=== PATIENT | female | born 1965 | race Caucasian/White ===

== ENCOUNTER 2020-05-07 07:55 | Outpatient (CLI) | payer OTHER ==
[2020-05-07 15:11] LABS: BASOPHILS % (AUTO) 0.6 %; EOSINOPHILS # (AUTO) 0.2 10^3/uL (0.0-0.7); EOSINOPHILS % (AUTO) 3.7 %; LYMPHOCYTES # (AUTO) 2.2 10^3/uL (1.5-3.5); LYMPHOCYTES % (AUTO) 45.2 %; MEAN CORPUSCULAR HEMOGLOBIN 32.8 pg (27.0-31.0); MEAN CORPUSCULAR HGB CONC 33.3 g/dL (32.0-36.0); MEAN CORPUSCULAR VOLUME 98.4 fL (81.0-99.0); MEAN PLATELET VOLUME 12.5 fL (7.9-10.8); MONOCYTES # (AUTO) 0.4 10^3/uL (0.0-1.0); MONOCYTES % (AUTO) 7.9 %; NEUTROPHILS # (AUTO) 2.1 10^3/uL (1.5-6.6); NEUTROPHILS % (AUTO) 42.4 %; PLT - PLATELET COUNT 167 10^3/uL (130-450); RED BLOOD COUNT 4.27 10^6/uL (4.20-5.40); RED CELL DISTRIBUTION WIDTH 12.3 % (12.0-15.0); WHITE BLOOD COUNT 4.9 x10^3/uL (4.8-10.8)
[2020-05-07 15:52] LABS: THYROID STIMULATING HORMONE 1.1 uIU/mL (0.34-5.60)
[2020-05-07 15:54] LABS: FREE T4 (FREE THYROXINE) 1.01 ng/dL (0.58-1.64)
[2020-05-07 15:55] LABS: ALBUMIN 3.9 g/dL (3.2-5.5); ALBUMIN/GLOBULIN RATIO 1.4 (1.0-2.2); ALKALINE PHOSPHATASE 58 IU/L (42-121); ALT ALANINE AMINOTRANSFERASE 37 IU/L (10-60); AST ASPARTATE AMINOTRANSFERASE 62 IU/L (10-42); BILIRUBIN,TOTAL 0.9 mg/dL (0.2-1.0); BUN - BLOOD UREA NITROGEN 16 mg/dL (6-20); CALCIUM 9.2 mg/dL (8.5-10.3); CARBON DIOXIDE - CO2 29 mmol/L (21-32); CHLORIDE 105 mmol/L (101-111); CHOL/HDL RATIO 2.3 (<4.4); CHOLESTEROL 202 mg/dL; CREATININE 0.7 mg/dL (0.4-1.0); FREE T3 3.03 pg/mL (2.5-3.9); GLUCOSE 98 mg/dL (70-100); HDL CHOLESTEROL 88 mg/dL; LDL CHOLESTEROL,CALCULATED 106 mg/dL; LDL/HDL RATIO 1.2 (<4.4); SODIUM 139 mmol/L (135-145); TOTAL PROTEIN 6.6 g/dL (6.7-8.2); VLDL CHOLESTEROL 8 mg/dL
[2020-05-07 15:58] LABS: FERRITIN 143.1 ng/mL (11.0-306.8)
== END 2020-05-07 07:56 | disposition home or self-care (01) ==
LOC: LAB.S 07:55
PROVIDERS: ATTEND Naprapath
DX: Z13.1 Encounter for screening for diabetes mellitus (principal); Z13.21 Encounter for screening for nutritional disorder; Z13.220 Encounter for screening for lipoid disorders; Z13.228 Encounter for screening for other metabolic disorders; Z13.0 Encounter for screening for diseases of the blood and blood-forming organs and certain disorders involving the immune mechanism; R53.83 Other fatigue
CPT/HCPCS: 36415; 80053; 80061; 81599; 82672; 82728; 83036; 83721; 84439; 84443; 84481; 85025

== ENCOUNTER 2020-08-01 17:17 | Outpatient (CLI) | payer OTHER | END 2020-08-01 17:18 | disposition home or self-care (01) | LOC: COV 17:17 | PROVIDERS: ATTEND Family Medicine | DX: R53.83 Other fatigue (principal); Z20.828 Contact with and (suspected) exposure to other viral communicable diseases; R09.81 Nasal congestion; M79.10 Myalgia, unspecified site ==

== ENCOUNTER 2020-08-17 12:50 | Outpatient (CLI) | payer OTHER ==
--- NOTE | 2020-08-17 14:33 | CT Report ---
PROCEDURE: HEAD WO INDICATIONS: INTRACTABLE DIZZINESS X 10 DAYS TECHNIQUE: Noncontrast 4.5 mm thick angled axial sections acquired from the foramen magnum to the vertex. For r adiation dose reduction, the following was used: automated exposure control, adjustment of mA and/or kV according to patient size. COMPARISON: None. FINDINGS: Image quality: Excellent. CSF spaces: Basal cisterns are patent. No extra-axial fluid collections. Ventricles are normal in size and shape. Brain: No midline shift. No intracranial masses or hemorrhage. Noel-white matter interface is norm al. Skull and face: Calvarium and visualized facial bones are intact, without suspicious lesions. Sinuses: Visualized sinuses and mastoids are clear. IMPRESSION: A cause of dizziness is not identified on this noncontrast head CT. If not contraindicated, please consider a dedicated IAC protocol MRI (without and with contrast) for further evaluation. Reviewed by: Biju Meza MD on 08/17/2020 1:32 PM MAULIK Approved by: Biju Meza MD on 08/17/2020 1:32 PM MAULIK Station ID: [id number]
== END 2020-08-17 12:51 | disposition home or self-care (01) ==
LOC: DI 12:50
PROVIDERS: ATTEND Naprapath
DX: R42 Dizziness and giddiness (principal)
CPT/HCPCS: 70450

== ENCOUNTER 2021-05-06 09:17 | Outpatient (CLI) | payer OTHER ==
[2021-05-06 16:05] LABS: ALBUMIN 4.1 g/dL (3.2-5.5); ALBUMIN/GLOBULIN RATIO 1.6 (1.0-2.2); BILIRUBIN,TOTAL 0.9 mg/dL (0.2-1.0); CALCIUM 9.3 mg/dL (8.5-10.3); CREATININE 0.7 mg/dL (0.4-1.0); POTASSIUM 4.1 mmol/L (3.5-5.0); TOTAL PROTEIN 6.6 g/dL (6.7-8.2)
[2021-05-06 16:22] LABS: THYROID STIMULATING HORMONE 1.21 uIU/mL (0.34-5.60)
[2021-05-06 16:23] LABS: FREE T3 3.53 pg/mL (2.5-3.9)
[2021-05-06 16:24] LABS: FREE T4 (FREE THYROXINE) 1.16 ng/dL (0.58-1.64)
== END 2021-05-06 09:18 | disposition home or self-care (01) ==
LOC: LAB.S 09:17
PROVIDERS: ATTEND Naprapath
DX: E55.9 Vitamin D deficiency, unspecified (principal); Z13.21 Encounter for screening for nutritional disorder; Z13.228 Encounter for screening for other metabolic disorders; Z13.29 Encounter for screening for other suspected endocrine disorder; Z13.820 Encounter for screening for osteoporosis
CPT/HCPCS: 36415; 80053; 82306; 84439; 84443; 84481

== ENCOUNTER 2024-01-24 08:00 | Outpatient (CLI) | payer OTHER | END 2024-01-24 23:59 | disposition home or self-care (01) | LOC: LAB.S 08:00 | PROVIDERS: ATTEND Registered Nurse | DX: J02.9 Acute pharyngitis, unspecified (principal) | CPT/HCPCS: 87070 ==

== ENCOUNTER 2024-02-18 16:12 | Outpatient (CLI) | payer OTHER ==
--- NOTE | 2024-02-18 16:51 | XRAY Report ---
PROCEDURE: Sinus 3+V INDICATIONS: NASAL SINUS CONGESTION TECHNIQUE: 3 views of the sinuses were acquired. COMPARISON: CT head dated 08/17/2020. FINDINGS: Sinuses: The visualized sinuses demonstrate no air-fluid levels or mucosal thickening. The visualiz ed mastoids also appear clear. Bones: No suspicious bony lesions. Nasal septum is midline. IMPRESSION: No air-fluid levels to suggest acute sinusitis. Reviewed by: Regino Bass MD on 02/18/2024 4:50 PM PDT Approved by: Regino Bass MD on 02/18/2024 4:50 PM PDT Station ID: [id number]
== END 2024-02-18 23:59 | disposition home or self-care (01) ==
LOC: DI.S 16:12
PROVIDERS: ATTEND Physician Assistant Medical
DX: R09.81 Nasal congestion (principal)